=== PATIENT | male | born 1995 | race Caucasian/White ===

== ENCOUNTER 2021-10-31 17:49 | Emergency (ER) | payer OTHER ==
[2021-10-31] MEDS ORDERED: BABY ASPIRIN 81 MG CHEW PO ONE (18:04)
[2021-10-31] MEDS ORDERED: Sodium Chloride 0.9% 1000 ML 1,000 ML IV STA (18:04)
[2021-10-31] MEDS ORDERED: Ativan 2 MG/1 ML VIAL ONE (18:09)
[2021-10-31] MEDS ORDERED: Ativan 2 MG/1 ML VIAL IV ONE (18:09)
--- NOTE | 2021-10-31 18:09 | ERPHSYRPT ---
<SUNNY COTTO - Last Filed: 10/31/21 18:56> - History of Present Illness Time Seen by Provider: 10/31/21 18:07 Historian: patient Exam Limitations: no limitations Physician History: Patient is a 26-year-old white male who presents with a complaint of palpitations. He works out frequently sometimes 2 times a day. He also drinks energy drinks and has had 2 today but this is not unusual for him. He was going into the gym when he felt his heart start to race he felt a little sweaty and short of breath and his chest felt tight. Timing/Duration: today Quality: pressure, tightness Location: substernal Chest Pain Radiation: no radiation Severity of Pain-Max: mild Severity of Pain-Current: mild Associated Symptoms: palpitations, shortness of breath Prior Chest Pain/Cardiac Workup: no prior cardiac workup Aspirin Treatment Today: 325 mg x 1 Allergies/Adverse Reactions: No Known Drug Allergies Allergy (Verified 10/31/21 18:00) Home Medications: No Reportable Medications [No Reported Medications] 10/31/21 [History] Hx Tetanus, Diphtheria Vaccination/Date Given: Yes (2009) Hx Influenza Vaccination/Date Given: No Hx Pneumococcal Vaccination/Date Given: No - Review of Systems Constitutional: No Fever, No Chills Eyes: No Symptoms Ears, Nose, & Throat: No Symptoms Respiratory: Dyspnea, No Cough Cardiac: Chest Pain, Palpitations, No Edema, No Syncope Abdominal/Gastrointestinal: No Abdominal Pain, No Nausea, No Vomiting, No Diarrhea Genitourinary Symptoms: No Dysuria Musculoskeletal: No Back Pain, No Neck Pain Skin: No Rash Neurological: No Dizziness, No Focal Weakness, No Sensory Changes Psychological: No Symptoms Endocrine: No Symptoms All Other Systems: Reviewed and Negative - Past Medical History Pertinent Past Medical History: No Neurological History: No Pertinent History ENT History: No Pertinent History Cardiac History: No Pertinent History Respiratory History: No Pertinent History Endocrine Medical History: No Pertinent History Musculoskeletal History: No Pertinent History GI Medical History: No Pertinent History History: No Pertinent History Psycho-Social History: No Pertinent History - Past Surgical History Past Surgical History: No Cardiac: No Pertinent History Respiratory: No Pertinent History Gastrointestinal: No Pertinent History Genitourinary: No Pertinent History Musculoskeletal: No Pertinent History Male Surgical History: No Pertinent History - Social History Smoking Status: Never smoker Exposure to second hand smoke: No Drug Use: none Patient Lives Alone: No - Physical Exam General Appearance: mild distress, alert Eye Exam: PERRL/EOMI, eyes nml inspection Ears, Nose, Throat Exam: normal ENT inspection, moist mucous membranes Neck Exam: normal inspection, non-tender, supple, full range of motion Respiratory Exam: normal breath sounds, lungs clear, No respiratory distress Cardiovascular Exam: regular rate/rhythm, normal heart sounds Gastrointestinal/Abdomen Exam: soft, No tenderness, No mass Back Exam: normal inspection, No CVA tenderness, No vertebral tenderness Extremity Exam: normal inspection, normal range of motion Neurologic Exam: alert, oriented x 3, cooperative, normal mood/affect, sensation nml, No motor deficits Skin Exam: normal color, warm, dry - Course Nursing assessment & vital signs reviewed: Yes EKG Interpreted by Me: RATE (90), Sinus Rhythm, NORMAL AXIS, NORMAL INTERVALS, Other (EKG computer reading suggested right ventricular hypertrophy) - Departure Departure Disposition: Home Clinical Impression: Palpitations Condition: Stable Critical Care Time: No Referrals: MARIEL GAUTAM MD [Primary Care Provider] - Follow up/PCP as directed Instructions: Palpitations (DC) Additional Instructions: Follow-up with Dr. Gautam in his office tomorrow by phone to make arrangements for further evaluation management including echocardiogram and cardiac stress test if indicated. Stop caffeinated energy drinks. Stop your creatine workout supplements <DAVIAN SHARIF - Last Filed: 10/31/21 20:14> - Nursing Vital Signs Nursing Vital Signs: Initial Vital Signs Temperature 97.1 F 10/31/21 18:01 Pulse Rate 88 10/31/21 18:01 Respiratory Rate 19 10/31/21 18:01 Blood Pressure 144/75 10/31/21 18:01 O2 Sat by Pulse Oximetry 100 10/31/21 18:01 Pain Scale Pain Intensity 0 Ordered Tests: Active Orders 24 hr Category Date Time Status EKG-ER Only STAT Care 10/31/21 18:04 Active IV Insertion STAT Care 10/31/21 18:04 Active CHEST 1 VIEW (PORTABLE) Stat Exams 10/31/21 18:05 Taken CBC W DIFF Stat Lab 10/31/21 18:21 Completed CMP Stat Lab 10/31/21 18:21 Completed D-DIMER QUANTITATIVE Stat Lab 10/31/21 18:21 Completed NT PRO BNP Stat Lab 09/20/22 18:21 Completed TROPONIN Q4H Lab 10/31/21 18:21 Completed TROPONIN Q4H Lab 10/31/21 22:15 Ordered TROPONIN Q4H Lab 11/01/21 02:15 Ordered UA W/RFX CULTURE Stat Lab 10/31/21 18:14 Completed Urine Triage Profile Stat Lab 10/31/21 18:13 Completed Medication Summary Discontinued Medications Generic Name Dose Route Start Last Admin Trade Name Adelina PRN Reason Stop Dose Admin Aspirin 324 mg 10/31/21 18:04 10/31/21 18:23 Aspirin 81 Mg Tab.Chew PO 10/31/21 18:05 324 mg STAT ONE Administration Aspirin Confirm 10/31/21 18:23 Aspirin 81 Mg Tab.Chew Administered 10/31/21 18:24 Dose 324 mg .ROUTE .STK-MED ONE Sodium Chloride 1,000 mls @ 999 mls/hr 10/31/21 18:04 10/31/21 19:24 Sodium Chloride 0.9% 1000 Ml IV 10/31/21 19:04 Infused .Q1H1M STA Infusion Sodium Chloride Confirm 10/31/21 18:23 Sodium Chloride 0.9% 1000 Ml Administered 10/31/21 18:24 Dose 1,000 mls @ ud .ROUTE .STK-MED ONE Lorazepam 1 mg 10/31/21 18:09 10/31/21 18:22 Lorazepam 2 Mg/1 Ml 2 Mg Vial IV 10/31/21 18:10 1 mg STAT ONE Administration Lorazepam Confirm 10/31/21 18:09 Lorazepam 2 Mg/1 Ml 2 Mg Vial Administered 10/31/21 18:10 Dose 2 mg .ROUTE .STK-MED ONE Lab/Rad Data: Laboratory Result Diagrams 10/31/21 18:21 10/31/21 18:21 Laboratory Results 10/31/21 10/31/21 10/31/21 Range/Units 18:21 18:21 18:21 WBC (4.0-10.5) x10^3/uL RBC (4.1-5.6) x10^6/uL Hgb (12.5-18.0) g/dL Hct (42-50) % MCV (78-100) fL MCH (26-32) pg MCHC (32-36) g/dL RDW (11.5-14.0) % Plt Count (150-450) x10^3/uL MPV (7.5-11.0) fL Gran % (36.0-66.0) % Immature Gran % (Auto) (0.00-0.4) % Nucleat RBC Rel Count (0.00-0.1) % Eos # (Auto) (0-0.5) x10^3/uL Immature Gran # (Auto) (0.00-0.03) x10^3u/L Absolute Lymphs (auto) (1.0-4.6) x10^3/uL Absolute Monos (auto) (0.0-1.3) x10^3/uL Absolute Nucleated RBC (0.00-0.01) x10^3u/L Lymphocytes % (24.0-44.0) % Monocytes % (0.0-12.0) % Eosinophils % (0.00-5.0) % Basophils % (0.0-0.4) % Absolute Granulocytes (1.4-6.9) x10^3/uL Basophils # (0-0.4) x10^3/uL D-Dimer < 0.19 (0.0-0.50) mg/L Sodium 135 L (137-145) mmol/L Potassium 4.0 (3.5-5.1) mmol/L Chloride 101 (98-107) mmol/L Carbon Dioxide 22 (22-30) mmol/L Anion Gap 16.2 H (5-15) MEQ/L BUN 12 (9-20) mg/dL Creatinine 1.28 H (0.66-1.25) mg/dL Estimated GFR > 60.0 ML/MIN Glucose 98 (74-106) mg/dL Calcium 9.2 (8.4-10.2) mg/dL Total Bilirubin 0.50 (0.2-1.3) mg/dL AST 34 (17-59) U/L ALT 24 (0-50) U/L Alkaline Phosphatase 117 (38-126) U/L Troponin I < 0.012 (0.000-0.034) ng/mL NT-Pro-B Natriuret Pep 23.7 (0-450) pg/mL Serum Total Protein 7.7 (6.3-8.2) g/dL Albumin 4.7 (3.5-5.0) g/dL Urinalys Dipstick Clnc Urine Color (YELLOW) Urine Appearance (CLEAR) Urine pH (5-6) Ur Specific [place] (1.005-1.025) POC Urine Protein Conf (Negative) Urine Ketones (NEGATIVE) Urine Nitrite (NEGATIVE) Urine Bilirubin (NEGATIVE) Urine Urobilinogen (0-1) mg/dL Urine Leukocytes (NEGATIVE) Urine WBC (Auto) (0-5) /HPF Urine RBC (Auto) (0-2) /HPF Urine Bacteria (Auto) (NEGATIVE) /HPF Urine RBC (0-5) [place] Ur Culture Indicated? Urine Glucose (NEGATIVE) mg/dL Urine Opiates Level (NEGATIVE) Ur Methadone (NEGATIVE) Urine Barbiturates (NEGATIVE) Ur Phencyclidine (PCP) (NEGATIVE) Urine Amphetamine (NEGATIVE) U Benzodiazepine Level (NEGATIVE) Urine Cocaine (NEGATIVE) Urine Marijuana (THC) (NEGATIVE) 10/31/21 10/31/21 10/31/21 Range/Units 18:21 18:14 18:13 WBC 9.8 (4.0-10.5) x10^3/uL RBC 4.59 (4.1-5.6) x10^6/uL Hgb 14.3 (12.5-18.0) g/dL Hct 40.5 L (42-50) % MCV 88.2 (78-100) fL MCH 31.2 (26-32) pg MCHC 35.3 (32-36) g/dL RDW 11.5 (11.5-14.0) % Plt Count 251 (150-450) x10^3/uL MPV 9.2 (7.5-11.0) fL Gran % 62.8 (36.0-66.0) % Immature Gran % (Auto) 0.3 (0.00-0.4) % Nucleat RBC Rel Count 0.0 (0.00-0.1) % Eos # (Auto) 0.09 (0-0.5) x10^3/uL Immature Gran # (Auto) 0.03 (0.00-0.03) x10^3u/L Absolute Lymphs (auto) 2.50 (1.0-4.6) x10^3/uL Absolute Monos (auto) 0.97 (0.0-1.3) x10^3/uL Absolute Nucleated RBC 0.00 (0.00-0.01) x10^3u/L Lymphocytes % 25.6 (24.0-44.0) % Monocytes % 9.9 (0.0-12.0) % Eosinophils % 0.9 (0.00-5.0) % Basophils % 0.5 (0.0-0.4) % Absolute Granulocytes 6.13 (1.4-6.9) x10^3/uL Basophils # 0.05 (0-0.4) x10^3/uL D-Dimer (0.0-0.50) mg/L Sodium (137-145) mmol/L Potassium (3.5-5.1) mmol/L Chloride (98-107) mmol/L Carbon Dioxide (22-30) mmol/L Anion Gap (5-15) MEQ/L BUN (9-20) mg/dL Creatinine (0.66-1.25) mg/dL Estimated GFR ML/MIN Glucose (74-106) mg/dL Calcium (8.4-10.2) mg/dL Total Bilirubin (0.2-1.3) mg/dL AST (17-59) U/L ALT (0-50) U/L Alkaline Phosphatase (38-126) U/L Troponin I (0.000-0.034) ng/mL NT-Pro-B Natriuret Pep (0-450) pg/mL Serum Total Protein (6.3-8.2) g/dL Albumin (3.5-5.0) g/dL Urinalys Dipstick Clnc MAIN LAB Urine Color YELLOW (YELLOW) Urine Appearance CLEAR (CLEAR) Urine pH 7.0 (5-6) Ur Specific [place] 1.015 (1.005-1.025) POC Urine Protein Conf NEGATIVE (Negative) Urine Ketones NEGATIVE (NEGATIVE) Urine Nitrite NEGATIVE (NEGATIVE) Urine Bilirubin NEGATIVE (NEGATIVE) Urine Urobilinogen 0.2 (0-1) mg/dL Urine Leukocytes NEGATIVE (NEGATIVE) Urine WBC (Auto) 0-2 (0-5) /HPF Urine RBC (Auto) 0-2 (0-2) /HPF Urine Bacteria (Auto) NONE (NEGATIVE) /HPF Urine RBC TRACE-INTACT (0-5) [place] Ur Culture Indicated? NO Urine Glucose NEGATIVE (NEGATIVE) mg/dL Urine Opiates Level NEGATIVE (NEGATIVE) Ur Methadone NEGATIVE (NEGATIVE) Urine Barbiturates NEGATIVE (NEGATIVE) Ur Phencyclidine (PCP) NEGATIVE (NEGATIVE) Urine Amphetamine NEGATIVE (NEGATIVE) U Benzodiazepine Level NEGATIVE (NEGATIVE) Urine Cocaine NEGATIVE (NEGATIVE) Urine Marijuana (THC) NEGATIVE (NEGATIVE) - Progress Progress: improved, re-examined Air Movement: good Progress Note: 10/31/21 20:13 Patient feels well. He does not feel anxious. He has no sensation of palpitations. He is troponin and D-dimer as well as electrolytes are within normal limits. We will discharge him to home. Blood Culture(s) Obtained: No Antibiotics given: No Counseled pt/family regarding: lab results, diagnosis, need for follow-up, rad results
[2021-10-31] MEDS ORDERED: Sodium Chloride 0.9% 1000 ML 1,000 ML ONE (18:23)
[2021-10-31] MEDS ORDERED: BABY ASPIRIN 81 MG CHEW ONE (18:23)
[2021-10-31 18:25] LABS: Absolute Neutrophil Ct (ANC) 6.13 x10^3/uL (1.4-6.9); Basophil (Absolute #) 0.05 x10^3/uL (0-0.4); Eosinophil % 0.9 % (0.00-5.0); Eosinophil (Absolute #) 0.09 x10^3/uL (0-0.5); Hematocrit 40.5 % (42-50); Hemoglobin 14.3 g/dL (12.5-18.0); Lymphocytes % 25.6 % (24.0-44.0); Mean Cell Volume 88.2 fL (78-100); Mean Corpuscular Hemoglobin 31.2 pg (26-32); Mean Corpuscular Hgb Concent. 35.3 g/dL (32-36); Mean Platelet Volume 9.2 fL (7.5-11.0); Monocyte (Absolute #) 0.97 x10^3/uL (0.0-1.3); Monocytes % 9.9 % (0.0-12.0); Neutrophil % 62.8 % (36.0-66.0); Platelet Count 251 x10^3/uL (150-450); Red Blood Count 4.59 x10^6/uL (4.1-5.6); Red Cell Distribution Width 11.5 % (11.5-14.0); White Blood Count 9.8 x10^3/uL (4.0-10.5)
[2021-10-31 18:33] LABS: Appearance CLEAR (CLEAR); Bilirubin NEGATIVE (NEGATIVE); Glucose NEGATIVE (NEGATIVE); RBC 0-2 /HPF (0-2); WBC 0-2 /HPF (0-5)
[2021-10-31 18:34] LABS: Dipstick done @ ? MAIN LAB; Ketones NEGATIVE (NEGATIVE); Nitrite NEGATIVE (NEGATIVE); Protein,Urine Dip NEGATIVE (Negative); RBC TRACE-INTACT Ery/ul (0-5); Specific Gravity 1.015 (1.005-1.025); Urine Cultured Indicated? NO; Urobilinogen 0.2 mg/dL (0-1)
[2021-10-31 18:53] LABS: Amphetamine,Urine NEGATIVE (NEGATIVE); Barbiturate,Urine NEGATIVE (NEGATIVE); Benzodiazepine,Urine NEGATIVE (NEGATIVE); Cocaine,Urine NEGATIVE (NEGATIVE); Methadone,Urine NEGATIVE (NEGATIVE); Opiate,Urine NEGATIVE (NEGATIVE); PCP,Urine NEGATIVE (NEGATIVE); THC,Urine NEGATIVE (NEGATIVE)
[2021-10-31 18:59] LABS: ALBUMIN 4.7 g/dL (3.5-5.0); ALKALINE PHOSPHATASE 117 U/L (38-126); ANION GAP 16.2 MEQ/L (5-15); BLOOD UREA NITROGEN 12 mg/dL (9-20); CHLORIDE 101 mmol/L (98-107); Calcium 9.2 mg/dL (8.4-10.2); Carbon Dioxide 22 mmol/L (22-30); Creatinine 1 1.28 mg/dL (0.66-1.25); EST GLOMERULAR FILTRATION RATE > 60.0 ML/MIN; Glucose 98 mg/dL (74-106); NT PRO BNP 23.7 pg/mL (0-450); SGOT/AST 34 U/L (17-59); SGPT/ALT 24 U/L (0-50); SODIUM 135 mmol/L (137-145); Total Protein 7.7 g/dL (6.3-8.2)
[2021-10-31 20:07] VITALS: BP 116/68; PULSE 73; O2SAT 96
--- NOTE | 2021-11-01 08:56 | XRAY ---
Indication: Chest pain. Comparison: January 11, 2015 Portable chest again hyperinflated and clear with a few incidental tiny calcified granulomas. Heart not enlarged. Bony thorax intact. No new/acute findings.
== END 2021-10-31 20:22 | disposition home or self-care (01) ==
LOC: ED 17:49
DX: R00.2 Palpitations (principal); R07.9 Chest pain, unspecified
CPT/HCPCS: 36000; 36415; 71045; 80053; 80307; 81015; 83880; 84484; 85025; 85379; 93005; 96374; 99284; J2060; A9270-GY

== ENCOUNTER 2023-07-01 17:39 | Emergency (ER) | payer BC, OTHER ==
[2023-07-01 17:47] VITALS: TEMP 98.2
--- NOTE | 2023-07-01 17:48 | ERPHSYRPT ---
- History of Present Illness Time Seen by Provider: 07/01/23 17:48 Source: patient, family Exam Limitations: no limitations Patient Subjective Stated Complaint: Pt states "I got hit in the face with a baseball." Triage Nursing Assessment: PT presented alert and oriented X3, skin wpd. PT ambulates with an upright steady gait, able to speak in clear full sentences. PT has small laceration noted to right upper lip. Physician History: This is a 28-year-old white male patient who was at baseball practice and 2 people threw the ball to him at the same time with one of them hitting him in the lip. There is a through and through laceration of the right side of his upper lip. The tooth went through this site. There was no loss of consciousness Timing/Duration: abrupt onset Severity: mild ENT Location: mouth Prearrival Treatment: no prearrival treatment (Right upper lip) Associated Symptoms: denies symptoms Allergies/Adverse Reactions: No Known Drug Allergies Allergy (Verified 10/31/21 18:00) Home Medications: Escitalopram Oxalate 10 mg PO DAILY 07/01/23 [History] Hx Tetanus, Diphtheria Vaccination/Date Given: Yes (2009) Hx Influenza Vaccination/Date Given: No Hx Pneumococcal Vaccination/Date Given: No Immunizations Up to Date: No Travel Risk - International Travel Have you traveled outside of the country in past 3 weeks: No - Emerging Infectious Disease Are you exhibiting symptoms associated with any current EIDs: No - Review of Systems Constitutional: No Symptoms Eyes: No Symptoms Ears, Nose, & Throat: Other (Right upper lip through and through laceration) Respiratory: No Symptoms Cardiac: No Symptoms Abdominal/Gastrointestinal: No Symptoms Genitourinary Symptoms: No Symptoms Musculoskeletal: No Symptoms Skin: No Symptoms Neurological: No Symptoms Psychological: No Symptoms Endocrine: No Symptoms Hematologic/Lymphatic: No Symptoms Immunological/Allergic: No Symptoms All Other Systems: Reviewed and Negative - Past Medical History Pertinent Past Medical History: Yes Neurological History: No Pertinent History ENT History: No Pertinent History Cardiac History: No Pertinent History Respiratory History: No Pertinent History Endocrine Medical History: No Pertinent History Musculoskeletal History: No Pertinent History GI Medical History: No Pertinent History History: No Pertinent History Psycho-Social History: Anxiety Male Reproductive Disorders: No Pertinent History - Past Surgical History Past Surgical History: No Cardiac: No Pertinent History Respiratory: No Pertinent History Gastrointestinal: No Pertinent History Genitourinary: No Pertinent History Musculoskeletal: No Pertinent History Male Surgical History: No Pertinent History - Social History Smoking Status: Never smoker Exposure to second hand smoke: No Drug Use: none Patient Lives Alone: No - Nursing Vital Signs Nursing Vital Signs: Initial Vital Signs Temperature 98.2 F 07/01/23 17:42 Pulse Rate 72 07/01/23 17:42 Respiratory Rate 20 07/01/23 17:42 Blood Pressure 147/95 07/01/23 17:42 O2 Sat by Pulse Oximetry 97 07/01/23 17:42 Pain Scale Pain Intensity 2 - Physical Exam General Appearance: no apparent distress, alert Eye Exam: bilateral eye: normal inspection, PERRL, EOMI Ear Exam: bilateral ear: auricle normal Nasal Exam: normal inspection Throat Exam: dental tenderness (Right upper incisor without movement or fractures present.), moist mucus membranes (There is a through and through laceration on the mucosal side of the right upper lip measuring approximately 2- 2 and half centimeters on the inner aspect and 1 cm laceration right upper outer lip that communicates with the inner lip. This laceration is bisected with 0.5 on the skin and 0.5cm on lip) SpO2: 97 Procedures - Laceration/Wound Repair Right Upper Lateral Lip Time of Procedure: 18:05 Wound Location: Right, face (Upper outer lip on right side) Wound Length (cm): 3.5 (Total length) Wound's Depth, Shape: superficial, linear, into subcut Wound Explored: clean Irrigated: Yes Hibiclens Prep: Yes Anesthesia: 1% Lidocaine (5 mL total) Volume Anesthetic (ccs): 5 Suture Size/Type: 3-0, ethilon (30), vicryl (30) Number of Sutures: 6 (4 inner Vicryl, 1 outer Vicryl, 1 outer nylon) Layer Closure?: Yes Progress: 07/01/23 18:28 One 3-0 Ethilon stitch on the skin of the external lip laceration - Course Nursing assessment & vital signs reviewed: Yes - Progress Progress: improved, re-examined Progress Note: 07/01/23 18:28 My medical decision making and the assignment of low complexity to this patient's medical issues based on review of the patient's past medical history, review the patient's medication list, review patient drug allergy list, history present illness and physical findings on examination. No laboratory radiographic studies are necessary in this patient. Counseled pt/family regarding: diagnosis, need for follow-up Medical Desision Making - Independent Historian Additional History obtained from: Father - Diagnostic Testing Diagnostic test were ordered, analyzed, and reviewed by me: No - Risk of complications Minimal Risk: Minimal risk of morbidity - Departure Departure Disposition: Home Clinical Impression: Laceration of lip Condition: Stable Critical Care Time: No Referrals: MARIEL GAUTAM MD [Primary Care Provider] - Follow up/PCP as directed Additional Instructions: Use Tylenol and ibuprofen for pain control. Consume clear liquids tonight followed by full liquids tomorrow morning and may advance diet to a soft diet by tomorrow evening. Suture removal of the single nylon stitch in approximately 5 to 7 days. The remainder of the sutures placed are dissolvable. Leave those in place until they fall off.
[2023-07-01 18:41] VITALS: BP 140/90; PULSE 88; RESP 18; O2SAT 98
== END 2023-07-01 18:41 | disposition home or self-care (01) ==
LOC: ED 17:39
DX: S01.511A Laceration without foreign body of lip, initial encounter (principal); W21.03XA Struck by baseball, initial encounter; Y93.64 Activity, baseball; Y92.320 Baseball field as the place of occurrence of the external cause
CPT/HCPCS: 12013; 99282